=== PATIENT | female | born 1950 | race Caucasian/White ===

== ENCOUNTER → 2016-11-24 | Outpatient (CLI) | payer OTHER ==
--- NOTE | 2016-11-25 10:46 | MM ---
Reason for exam: screening (asymptomatic). Last mammogram was performed 1 year ago. History: Patient is postmenopausal. Family history of breast cancer in aunt. Took hormonal contraceptives for 2 years. Physical Findings: A clinical breast exam by your physician is recommended on an annual basis and results should be correlated with mammographic findings. MG Screening Mammo w CAD Bilateral CC and MLO view(s) were taken. Prior study comparison: November 16, 2015, bilateral MG screening mammo w CAD. November 14, 2014, bilateral MG screening mammo w CAD. No significant changes when compared with prior studies. ASSESSMENT: Benign, BI-RAD 2 RECOMMENDATION: Routine screening mammogram of both breasts in 1 year.
== END | disposition home or self-care (01) ==
LOC: RADMAMWWP 13:29
PROVIDERS: ATTEND Family Medicine
DX: Z12.31 Encounter for screening mammogram for malignant neoplasm of breast (principal)

== ENCOUNTER → 2017-05-04 | Outpatient (CLI) | payer MEDICARE ==
--- NOTE | 2017-05-04 20:32 | CONS ---
CONSULTATION DATE OF SERVICE: 05/04/17 HISTORY OF PRESENT ILLNESS/SLEEP WAKE EVALUATION: 67-year-old lady has been re-evaluated in [facility] for obstructive sleep apnea- hypopnea syndrome. I have known the patient since 2012. At that time, she was diagnosed with extremely severe obstructive sleep apnea-hypopnea syndrome with apnea-hypopnea index 86 and she was started on treatment with CPAP with a pressure of 10 cm of water. Patient continued to use her CPAP equipment until now. For this year she has significantly changed her weight up and down totally according to her she lost around 40 pounds of weight. For the last year she developed problems with awakenings from sleep, which she did not have for the previous year since she was started on treatment with CPAP. SLEEP SCHEDULE: The patient's usual sleep schedule at midnight until 8:30 a.m. FALLING ASLEEP: Sometimes she has problem with falling asleep. She has taken Tylenol p.m. to help with falling asleep. She has TV set in bedroom. DURING SLEEP: She wakes up from sleep up to 4 times with small episodes of nocturia. DURING THE DAY/SLEEP WAKE EVALUATION: No history of hypnagogic hallucinations, sleep paralysis or cataplexy. [place] Sleepiness Scale is 5. PAST MEDICAL HISTORY: Positive for some difficulties to concentrate, possible depression, allergic sinusitis, polyps in the colon. PAST SURGICAL HISTORY: None. MEDICATIONS: Vitamins, Tylenol, citalopram. History of ear infection, status post tube insertion, about 3 years ago for fluids in her ears. She developed loss of hearing with some changes of hearing while she had this infection, improved after she was treated. REVIEW OF SYMPTOMS: Multiple awakenings from sleep even while using her CPAP. FAMILY HISTORY: Colon cancer. PLAN: 1. CPAP titration for evaluation of effective CPAP pressure at the present time after patient lost according to her about 40 pounds. 2. Continue losing weight. 3. Continue using CPAP therapy. 4. No driving if feeling sleepiness. 5. Prescription for all necessary supplies. Thank you very much for allowing me to participate in the management of your patient. Sincerely, Ryan Doherty MD, PhD, FAASM Diplomat of [employer] Education Manager of [facility] [place] MMODL / IJN: [id number] /
== END ==
LOC: SLEEP 13:50
PROVIDERS: ATTEND Internal Medicine
DX: G47.33 Obstructive sleep apnea (adult) (pediatric) (principal); Z99.89 Dependence on other enabling machines and devices; Z79.899 Other long term (current) drug therapy
CPT/HCPCS: 99211

== ENCOUNTER → 2017-08-24 | Outpatient (CLI) | payer MEDICARE ==
--- NOTE | 2017-08-24 16:24 | PN ---
PROGRESS NOTE DATE OF SERVICE: 08/24/2017 This patient is a 67-year-old lady who has been followed in the sleep center for treatment of obstructive sleep apnea-hypopnea syndrome. Recently she had a CPAP titration after she lost about 40 pounds and received her new CPAP unit. She is able to use CPAP equipment without problems, but she feels that the pressure is not enough to correct her breathing problems during sleep. I checked her CPAP unit. CPAP pressure is 8 cm of water. Leak is 16 L/minute, which is borderline. Apnea-hypopnea index for the last month is 5.44; for last night 2.7. Usage is 16 nights for the last month because the patient was on vacation. [place] Sleepiness Scale is 6. MEDICATIONS: 1. Baby aspirin. 2. Calcium supplement. 3. B12. 4. Citalopram. PHYSICAL EXAMINATION: GENERAL A pleasant lady in no distress. VITAL SIGNS: BP 119/66, HR 66, RR 18, weight 211.8, temperature 97.7, oxygen saturation at room air 95%. HEENT: PERRLA, EOMI. Evaluation of oropharynx showed tongue protrudes midline; moderately low position of soft palate. NECK: Supple. No JVD. Thyroid is not palpable. LUNGS: Clear to percussion and to auscultation. Good air exchange. No wheezing or rhonchi. HEART: S1, S2 regular. No murmurs, gallops or rubs. ABDOMEN: Slightly obese. EXTREMITIES : No clubbing or cyanosis. CRABBING MACHINE OPERATOR: Awake, alert, and oriented X3. Cranial nerves 2 to 7 intact. There is no fasciculation or atrophy. noted. No focal deficits observed. IMPRESSION: 1. Obstructive sleep apnea-hypopnea syndrome. Patient is benefitting from CPAP treatment. 2. Mild obesity; body mass index 36. 3. History of allergic sinusitis. 4. History of polyps in the colon. PLAN: 1. I will increase pressure in CPAP unit to 10 cm of water. 2. Patient will continue to use CPAP equipment every night for the whole night. 3. Losing weight program. 4. Sleep hygiene with regular time in bed for at least 8 hours. 5. No driving if feeling any sleepiness. Thank you very much for allowing me to participate in the management of your patient. Sincerely, Ryan Doherty MD, PhD, FAASM Diplomat of [employer] Manager [employer] of [facility] MMDMITRY / VIKAN: [id number] /
== END | disposition home or self-care (01) ==
LOC: SLEEP 13:10
PROVIDERS: ATTEND Internal Medicine
DX: G47.33 Obstructive sleep apnea (adult) (pediatric) (principal); E66.9 Obesity, unspecified; Z99.89 Dependence on other enabling machines and devices; Z79.82 Long term (current) use of aspirin; Z79.899 Other long term (current) drug therapy; Z68.36 Body mass index [BMI] 36.0-36.9, adult; Z86.010 Personal history of colon polyps; Z87.09 Personal history of other diseases of the respiratory system

== ENCOUNTER → 2017-12-28 | Outpatient (CLI) | payer MEDICARE ==
--- NOTE | 2018-01-01 08:27 | MM ---
Reason for exam: screening (asymptomatic). Last mammogram was performed 1 year and 1 month ago. History: Patient is postmenopausal. Family history of breast cancer in aunt. Took hormonal contraceptives for 2 years. Physical Findings: A clinical breast exam by your physician is recommended on an annual basis and results should be correlated with mammographic findings. MG Screening Mammo w CAD Bilateral CC and MLO view(s) were taken. Prior study comparison: November 24, 2016, bilateral MG screening mammo w CAD. November 16, 2015, bilateral MG screening mammo w CAD. The breast tissue is heterogeneously dense. This may lower the sensitivity of mammography. No suspicious abnormality. No significant changes when compared with prior studies. ASSESSMENT: Negative, BI-RAD 1 RECOMMENDATION: Routine screening mammogram of both breasts in 1 year.
== END ==
LOC: RADMAMWWP 11:21
PROVIDERS: ATTEND Family Medicine
DX: Z12.31 Encounter for screening mammogram for malignant neoplasm of breast (principal)
CPT/HCPCS: 77067

== ENCOUNTER → 2020-03-20 | Outpatient (CLI) | payer MEDICARE ==
--- NOTE | 2020-03-24 09:19 | MM ---
Reason for exam: screening (asymptomatic). Last mammogram was performed 2 years and 3 months ago. History: Patient is postmenopausal. Family history of breast cancer in aunt. Took hormonal contraceptives for 2 years. Physical Findings: A clinical breast exam by your physician is recommended on an annual basis and results should be correlated with mammographic findings. MG Screening Mammo w CAD Bilateral CC and MLO view(s) were taken. Prior study comparison: December 28, 2017, bilateral MG screening mammo w CAD. November 24, 2016, bilateral MG screening mammo w CAD. There are scattered fibroglandular densities. There is chronic nodularity in the left upper outer quadrant. No significant changes when compared with prior studies. ASSESSMENT: Negative, BI-RAD 1 RECOMMENDATION: Routine screening mammogram of both breasts in 1 year.
== END | disposition home or self-care (01) ==
LOC: RADMAMWWP 15:04
PROVIDERS: ATTEND Family Medicine
DX: Z12.31 Encounter for screening mammogram for malignant neoplasm of breast (principal)
CPT/HCPCS: 77067

== ENCOUNTER → 2020-08-25 | Outpatient (CLI) | payer MEDICARE | END | disposition home or self-care (01) | LOC: LABPAT 14:11 | PROVIDERS: ATTEND Orthopaedic Surgery | DX: Z01.812 Encounter for preprocedural laboratory examination (principal); M16.11 Unilateral primary osteoarthritis, right hip | CPT/HCPCS: 36415; 86850; 86900; 86901; 87070 ==

== ENCOUNTER 2020-09-01 06:50 | Day surgery (SDC) | payer MEDICARE ==
[2020-08-27 10:09] VITALS: BMI 37.4
--- NOTE | 2020-08-31 18:17 | HP ---
HISTORY AND PHYSICAL CHIEF COMPLAINT: Right hip pain. HISTORY OF PRESENT ILLNESS: Patient is a 70-year-old retired female who presents with progressive right hip pain for the past several years, worsening in the past 5 months. She is having pain with weightbearing activities in the groin and her side. She also having night symptoms. She is using a cane and has been limping. She has tried medications in addition to caretaker without much relief. She denies any numbness. PAST MEDICAL HISTORY: Significant for infection. PAST SURGICAL HISTORY: Significant for surgical colonoscopy, tubal ligation and previous ear surgery. CURRENT MEDICATIONS: Ibuprofen and Lexapro. She denies drug allergies. FAMILY HISTORY: Significant for cancer. SOCIAL HISTORY: Negative for current tobacco or alcohol use. REVIEW OF SYSTEMS: Sixteen-point review of systems otherwise reviewed and is noncontributory. PHYSICAL EXAMINATION: On examination, the patient is approximately 5 foot 5, 220 pounds of endomorphic habitus. HEENT exam is nonfocal. Neck is supple. Passive motion right hip, flexion 70 degrees, external rotation of the hip flexed 50 degrees, internal rotation 0 degrees with pain. Clinically, she has shortening of right lower extremity compared to the left. Her distal neurovascular exam appears intact in the right lower extremity. AP of the pelvis obtained in the office show severe right hip osteoarthrosis with bone- on-bone changes and subchondral sclerosis. IMPRESSION: Right hip severe osteoarthrosis. RECOMMENDATIONS: I talked to the patient at length regarding her condition along with treatment options. At this point, she is quite symptomatic and limited because of pain related to her osteoarthrosis despite conservative measures. After thorough discussion, she opts to proceed with surgery. We will plan to proceed with right total hip arthroplasty utilizing lateral approach. Risks and benefits were discussed at length in layman's terms. We will institute DVT prophylaxis postoperatively. The patient underwent preoperative medical evaluation by Dr. Perez. MMODL / IJN: [id number] /
[~2020-09-01 06:50] MED LIST: ACETAMINOPHEN TAB 500 MG TAB PO PRN; MELOXICAM 7.5 MG TAB PO PRN; TRANEXAMIC ACID 1,000 MG in SODIUM CHLORIDE 0.9% 100 ML IVPB PRN
[2020-09-01] MEDS ORDERED: TRANEXAMIC ACID 1,000 MG/10 ML VIAL ONE (07:18)
[2020-09-01] MEDS ORDERED: PROPOFOL 10 MG/ML 20 ML VIAL IV ONE (07:18)
[2020-09-01] MEDS ORDERED: SODIUM CHLORIDE 0.9% 100 ML BAG ONE (07:18)
[2020-09-01] MEDS ORDERED: HYDROmorphone (PF) 1 MG/ML ONE (07:18)
[2020-09-01] MEDS ORDERED: fentaNYL (PF) 50 MCG/ML 2 ML AMP ONE (07:18)
[2020-09-01] MEDS ORDERED: MIDAZOLAM 2 MG/2 ML VIAL ONE (07:18)
[2020-09-01] MEDS ORDERED: ePHEDrine SULFATE/0.9% NACL/PF 50 MG/5 ML SYRINGE IV ONE (07:18)
[2020-09-01] MEDS ORDERED: LIDOCAINE 1% (10MG/ML) FOR IV START SQ ONE (07:20)
[2020-09-01] MEDS ORDERED: ONDANSETRON 4 MG/2 ML VIAL ONE (07:28)
[2020-09-01] MEDS ORDERED: LACTATED RINGERS 1,000 ML IV ONE ×2 (07:32→08:35)
[2020-09-01] MEDS ORDERED: DEXAMETHASONE SOD PHOSPHATE 4 MG/ML 1 ML VIAL IV ONE (07:33)
[2020-09-01] MEDS ORDERED: ceFAZolin 1,000 MG in SODIUM CHLORIDE 0.9% 1,000 ML IRRIGATION ONE (08:25)
[2020-09-01] MEDS ORDERED: ONDANSETRON 4 MG/2 ML VIAL IVP PRN (09:39)
[2020-09-01] MEDS ORDERED: NALOXONE 0.4 MG/ML 1 ML VIAL IV PRN (09:39)
[2020-09-01] MEDS ORDERED: ACETAMINOPHEN TAB 325 MG TAB PO PRN (09:39)
[2020-09-01] MEDS ORDERED: HYDROmorphone 0.5 MG/0.5 ML SYRINGE IVP PRN (09:39)
[2020-09-01] MEDS ORDERED: MAGNESIUM HYDROXIDE 2,400 MG/10 ML CUP PO PRN (09:39)
--- NOTE | 2020-09-01 09:59 | P.OP ---
Date of Procedure: 09/01/20 Preoperative Diagnosis: Right hip severe osteoarthrosis Postoperative Diagnosis: Same Procedure(s) Performed: Right total hip arthroplastypress-fitlateral approach Implants: Depuy Corail size 10 standard collared press-fit femoral stem, 36+1.5 cobalt chrome femoral head, 52 mm [place] acetabular shell with neutral polyethylene liner. Anesthesia: GETA, spinal Surgeon: Bryson Griffith General Office Assistant #1: Garry Lira Assistant #2: Kamran Colindres Estimated Blood Loss (ml): 250 Pathology: other (Femoral head) Condition: stable Disposition: PACU Indications for Procedure: The patient's a 70-year-old female who presents with progressive right hip pain secondary to osteoarthrosis despite conservative measures. A discussion of the risks and benefits of operative intervention versus continued conservative measures was made with patient. She opted to proceed with surgery. Operative risks to include infection, neurovascular injury, development of blood clots, possible fracture, possible leg length discrepancy, possible instability, possible failure components and need for subsequent procedures was discussed. Informed consent was obtained. Operative Findings: As below Description of Procedure: The patient was brought to the operating room, and after induction of spinal anesthesia was placed in a lateral decubitus position. The bony prominences were appropriately padded. The pelvis was stable perpendicular to the floor with a pegboard. The right lower extremity was prepped and draped in normal fashion. A spinal anesthetic was deemed to be inadequate and therefore general endotracheal intubation was performed by anesthesia. A 12 cm incision was then made centered over the greater trochanter extending superiorly to level the ASIS and distally in line with the femoral shaft. The skin and subcutaneous tissues were divided sharply. Electrocautery was used for hemostasis. The fascia ortega and gluteus jacqueline fascia was split in line with the skin incision. The muscle fibers were bluntly dissected proximally. A self-retaining retractor was placed. The anterior and posterior margins of the gluteus medius muscles identi fied and the anterior two thirds was detached from the greater trochanter with electrocautery. The gluteus minimus tendon was identified and detached in a similar fashion. A wide capsulotomy was performed. The femoral neck fracture was identified in the lower neck cut was made approximately 1 1/2 cm above the level of the lesser trochanter with a sagittal saw at a 45 the shaft. The head was then extracted with a corkscrew. Attention was then paid towards preparing the acetabular. Anterior and posterior retractors were placed. The remaining capsular labral tissues debrided sharply clearly defining the acetabular margins. Began reaming with a 45 mm reamer taking care to initially medialize, then reaming at 45 of abduction and 20 of anteversion. Sequential reaming is performed up to 51 mm. This was down to bleeding bony surface. A trial 52 mm acetabular shell was inserted at 45 of abduction and 20 of anteversion. This was fully seated. There was good rim fit and stability. The final implant was impacted and the same orientation and was fully seated. There was good stability. A neutral polyethylene liner was then impacted. Care taken to avoid any soft tissue interposition. Attention was then paid towards preparing the proximal femur. A box chisel was used to open the metaphyseal region. A canal finder was used to find the femoral canal. Sequential broaching was performed up to a size 10. This is placed in 15 of anteversion with the leg perpendicular floor judging off the trans-epicondylar axis. There is good rotational stability. A calcar mill was used to fashion the medial calcar. A trial standard neck along with a 36 mm + 1.5 trial head was placed. The hip was gently reduced. It was taken through range of motion. I felt to be stable in f lexion and extension with internal and external rotation. I felt there was adequate jehovah's witness of soft tissue tension. The hip was gently dislocated. The trial components removed. Pulsatile lavage was utilized. The final size 10 standard collared femoral stem was inserted again with the leg perpendicular to the floor in 15 of anteversion. Again there was good rotational stability. A 36 mm + 1.5 cobalt chrome femoral head was gently impacted. The hip was gently reduced. Again it was taken through motion and felt to be stable in flexion and extension with internal and external rotation. Pulsatile lavage was again utilized. With the leg in abduction the gluteus minimus and medius tendons reattached to the greater trochanter with #2 Ethibond suture. There was minimal drainage therefore a deep drain was not placed. The fascia ortega and gluteus jacqueline fascia was closed with #2 Ethibond suture. The subcutaneous tissues were reapproximated interrupted 2-0 Vicryl sutures. The skin was reapproximated with 3-0 subcuticular strata fix suture. Skin tape and adhesive was applied. A sterile dressing was applied. The patient was awoken from sedation and transferred to recovery room in good condition. Blood loss was estimated 250 mL. No complications were incurred. Sponge and needle counts were correct in the case. Gera PADILLA assisted during the major composes case to include exposure, implantation, and closure.
[2020-09-01] MEDS ORDERED: HYDROmorphone 0.5 MG/0.5 ML SYRINGE IVP ONE (10:14)
--- NOTE | 2020-09-01 10:17 | XR ---
EXAMINATION TYPE: XR Hip Limited RT DATE OF EXAM: 09/01/2020 CLINICAL HISTORY: Right hip pain and osteoarthritis. TECHNIQUE: Single AP portable view of right hip is obtained immediately postoperatively. COMPARISON: Outside Pelvic x-ray July 10, 2020. FINDINGS: Metallic hardware from right hip arthroplasty is seen and appears satisfactory in alignment and position. There is evidence of recent surgery with subcutaneous gas noted laterally. IMPRESSION: Metallic hardware from right hip arthroplasty is satisfactory in position.
[2020-09-01] MEDS ORDERED: PSYLLIUM HUSK 100% 6 GM PACKET PO SCH ×2 (12:30→21:00)
[2020-09-01] MEDS: HYDROcodone/APAP 7.5-325MG 1 EACH TAB PO PRN ×2 (15:04→22:16)
--- NOTE | 2020-09-01 17:15 | P.CONS ---
History of Present Illness - Reason for Consult Consult date: 09/01/20 Medical management Requesting physician: Bryson Griffith - Chief Complaint Hip pain - History of Present Illness Consultation: This is a very pleasant 70-year-old patient of Dr. Palafox. Agent has undergone right total hip arthroplasty. Slight postprocedure discomfort. No nausea vomiting. No chest pain or shortness of breath. Laying in bed. Patient does have obstructive sleep apnea and uses a CPAP. Has arthritic pain in other joints. Occasional reflux symptoms. Patient has trouble sleeping. And takes a Tylenol PM. Patient does have urinary stress incontinence with coughing sneezing etc. Review of systems: GEN.: None EYES: None HEENT: None NECK: None RESPIRATORY: None CARDIOVASCULAR: None GASTROINTESTINAL: Occasionally reflux GENITOURINARY: Urine leakage with coughing sneezing etc. MUSCULOSKELETAL: Pain in joints LYMPHATICS: None HEMATOLOGICAL: None PSYCHIATRY: None NEUROLOGICAL: Trouble sleeping Past medical history to include: Osteoarthritis, obstructive sleep apnea Social history: . Does not smoke or drink alcohol. Family history: Cancer Physical examination: VITAL SIGNS: 97.5, 72, 16, 1 44 x 70, 95% on 2 L GENERAL: BMI 37, laying in bed, comfortable. EYES: Pupils equal. Conjunctiva normal. HEENT: External appearance of nose and ears normal, oral cavity grossly normal. NECK: JVD not raised; masses not palpable. HEART: First and second heart sounds are normal; no edema. LUNGS: Respiratory rate normal; clear to auscultation. ABDOMEN: Soft, nontender, liver spleen not palpable, no masses palpable. PSYCH: Alert and oriented x3; mood and affect normal. MUSCULAR skeletal: Evidence of OA. Dressing over the right hip NEUROLOGICAL: Cranial nerves grossly intact; no facial asymmetry, power and sensation grossly intact. LYMPHATICS: No lymph nodes palpable in the axilla and neck Assessment and plan: -Right total hip arthroplasty xarelto for DVT prophylaxis -Obesity BMI 37 Weight loss measures and follow-up with PCP -Chronic constipation Add Metamucil -Intermittent GERD Use Maalox when necessary -Urinary stress incontinence -Chronic idiopathic insomnia Told the patient to discontinue Tylenol PM. Start melatonin 1 mg daily at bedtime Care was discussed the patient. Questions answered. Thank you Dr. Griffith Past Medical History Past Medical History: Osteoarthritis (OA), Sleep Apnea/CPAP/BIPAP Additional Past Medical History / Comment(s): USES CPAP-INSTRUCTED TO BRING DAY OF PROCEDURE History of Any Multi-Drug Resistant Organisms: None Reported Additional Past Surgical History / Comment(s): COLONOSCOPY Past Anesthesia/Blood Transfusion Reactions: No Reported Reaction Smoking Status: Never smoker - Past Family History Father Family Medical History: Cancer Mother Family Medical History: Cancer Medications and Allergies Home Medications Medication Instructions Recorded Confirmed Type Ascorbic Acid [Vitamin C] 1,000 mg PO HS 08/27/20 09/01/20 History Calcium Carbonate [Calcium] 1,200 mg PO HS 08/27/20 09/01/20 History Cholecalciferol [Vitamin D3 (25 25 mcg PO HS 08/27/20 09/01/20 History Mcg = 1000 Iu)] Escitalopram [Lexapro] 10 mg PO HS 08/27/20 09/01/20 History Glucos Sul 2Kcl/MSM/Chond/C/Mn 2 each PO HS 08/27/20 09/01/20 History [Glucosamine Chondroitin Cap] HYDROcodone/APAP 7.5-325MG [[place] 1 tab PO Q6HR PRN 08/27/20 09/01/20 History 7.5-325] Multivitamins, Thera [Multivitamin 1 tab PO HS 08/27/20 08/27/20 History (formulary)] Acetaminophen [Tylenol Arthritis] 1 tablet PO QID 09/01/20 09/01/20 History Melatonin 1 mg PO HS #30 tablet 09/01/20 Rx Allergies Allergy/AdvReac Type Severity Reaction Status Date / Time No Known Allergies Allergy Verified 09/01/20 07:06 Physical Exam Vitals: Vital Signs Temp Pulse Pulse Resp BP Pulse Ox 09/01/20 10:32 71 16 129/58 94 L 09/01/20 10:17 63 16 132/63 99 09/01/20 10:02 70 16 133/59 100 09/01/20 09:47 96.9 F L 71 18 137/64 93 L 09/01/20 07:10 96.9 F L 64 16 134/61 95 Intake and Output 08/31/20 09/01/20 09/01/20 22:59 06:59 14:59 Intake Total 1851 Output Total 250 Balance 1601 Intake: IV 1851 Output: Estimated Blood Loss 250 Other: Weight 100.9 kg
[2020-09-01] MEDS ORDERED: ASCORBIC ACID 500 MG TAB PO SCH (21:00)
[2020-09-01] MEDS ORDERED: MULTIVITAMINS, THERA 1 EACH TAB PO SCH (21:00)
[2020-09-01] MEDS ORDERED: MELATONIN 1 MG TAB PO SCH (21:00)
[2020-09-01] MEDS ORDERED: CALCIUM CARBONATE 500 MG CHEWABLE PO SCH (21:00)
[2020-09-01] MEDS ORDERED: ESCITALOPRAM 10 MG TAB PO SCH (21:00)
[2020-09-01] MEDS ORDERED: CHOLECALCIFEROL 25 MCG (1000 IU) TABLET PO SCH (21:00)
[2020-09-01] MEDS ORDERED: SENNOSIDES-DOCUSATE SODIUM 1 EACH TAB PO SCH (21:00)
[2020-09-02 07:37] VITALS: BP 138/74; PULSE 80; RESP 17; TEMP 98.3
[2020-09-02] MEDS: HYDROcodone/APAP 7.5-325MG 1 EACH TAB PO PRN ×2 (07:50→14:41)
[2020-09-02 08:24] LABS: Basophils % (A) 0 %; Eosinophils % (A) 0 %; HCT 36.9 % (34.0-46.0); HGB 12.3 gm/dL (11.4-16.0); Lymphocytes # (A) 1.6 k/uL (1.0-4.8); Lymphocytes % (A) 14 %; MCH 31.2 pg (25.0-35.0); MCHC 33.3 g/dL (31.0-37.0); MCV 93.5 fL (80.0-100.0); Mean Platelet Volume 8.2; Monocytes # (A) 0.6 k/uL (0-1.0); Monocytes % (A) 5 %; Neutrophils # (A) 9.5 k/uL (1.3-7.7); Neutrophils % (A) 80 %; Platelet Count 236 k/uL (150-450); RBC 3.95 m/uL (3.80-5.40); WBC 11.9 k/uL (3.8-10.6)
[2020-09-02] MEDS ORDERED: FAMOTIDINE 20 MG TAB PO SCH (09:00)
[2020-09-02] MEDS ORDERED: RIVAROXABAN 10 MG TAB PO SCH (09:00)
--- NOTE | 2020-09-02 11:30 | P.DS ---
Providers Date of admission: 09/01/2020 Expected date of discharge: 09/02/20 Attending physician: Bryson Griffith Consults: 09/01/20 09:39 Consult Physician Routine Consulting Provider: Jasper Palafox Reason/Comments: medical management Do you want consulting provider notified?: Yes Primary care physician: Jasper Palafox [facility] Course: Date of admission: 09/01/2020 Date of discharge: 09/02/2020 Admission diagnosis: Right hip osteoarthritis Discharge diagnosis: Same Attending physician: Dr. Griffith Surgical procedures: Right total hip arthroplasty Brief history: Patient is a 70-year-old female with a history of progressive primary right hip osteoarthritis. At this point patient has failed conservative treatment measures and has opted to proceed with a elective right total hip arthroplasty. Hospital course: Details of patient's surgery can be found in operative report. Patient tolerated the procedure well and was subsequently transported to orthopedic floor. Patient's orthopeidc and medical care was provided daily. Patient had daily laboratory tests performed for evaluation of overall blood counts. Patient had daily physical therapy to include strengthening range of motion as well as education with walker ambulation. Patient was treated with Xarelto for their postoperative DVT prophylaxis during their inpatient stay. Patient was noted to have a relatively uneventful postoperative course. Patient reported satisfactory pain control with oral pain medications by postoperative day 1. Patient showed satisfactory progress with physical therapy. Patient moved steadily through the program and had no difficulty meeting the goals by postoperative day 1. Given patient's otherwise satisfactory course and having met physical therapy goals, plan is to discharge patient home on postoperative day 1. Discharge condition/disposition: Patient will be discharged home in stable condition. Discharge medications: Instructions are given on resumption of patient's normal daily medications per primary care recommendation, in addition patient will be prescribed [place] 7.5 mg/325 mg; senna; Eliquis 2.5 mg BID x 2 weeks. Discharge instructions: 1. Wound care and infection precautions keep incision dry and covered while showering, no lotions, creams, moisturizers. No soaking, tubs, pools, hottubs. Do not scrub over the incision. 2. Weight-foster as tolerated with walker / cane until follow-up. 3. Ice and elevate when necessary. Do not exceed 20 minutes per hour with ice pack. 4. Utilize compression sleeve until seen at first follow up appointment. 5. Visiting nursing care. 6. Home physical therapy. 7. Pain meds and anticoagulants per prescription. 8. Pain medication has potential to cause constipation. Increase oral fluid and fiber intake. Contact primary care provider if you have not had a bowel movement within 48 hours after discharge 9. No anti-inflammatory medication until discussed at first post operative visit, this including Motrin, Aleve, Mobic, Diclofenac. 10. Follow up in office at 2 weeks postop with Gera Lira PA-C / Kamran Colindres PA-C 11. Follow up with your primary care doctor 7-10 days after discharge. 12. Contact [facility] with any questions, . Assessment: Right hip osteoarthritis Procedures: Right total hip arthroplasty Patient Condition at Discharge: Good Plan - Discharge Summary Discharge Rx Participant: Yes New Discharge Prescriptions: New Melatonin 1 mg PO HS #30 tablet HYDROcodone/APAP 7.5-325MG [[place] 7.5] 1 each PO Q6HR PRN #28 tab PRN Reason: Pain Apixaban [Eliquis] 2.5 mg PO BID #60 tab Sennosides [Senna] 8.6 mg PO DAILY #20 tablet No Action Calcium Carbonate [Calcium] 1,200 mg PO HS Acetaminophen [Tylenol Arthritis] 1 tablet PO QID Multivitamins, Thera [Multivitamin (formulary)] 1 tab PO HS HYDROcodone/APAP 7.5-325MG [[place] 7.5-325] 1 tab PO Q6HR PRN PRN Reason: Pain Escitalopram [Lexapro] 10 mg PO HS Cholecalciferol [Vitamin D3 (25 Mcg = 1000 Iu)] 25 mcg PO HS Glucos Sul 2Kcl/MSM/Chond/C/Mn [Glucosamine Chondroitin Cap] 2 each PO HS Ascorbic Acid [Vitamin C] 1,000 mg PO HS Discharge Medication List Ascorbic Acid [Vitamin C] 1,000 mg PO HS 08/27/20 [History] Calcium Carbonate [Calcium] 1,200 mg PO HS 08/27/20 [History] Cholecalciferol [Vitamin D3 (25 Mcg = 1000 Iu)] 25 mcg PO HS 08/27/20 [History] Escitalopram [Lexapro] 10 mg PO HS 08/27/20 [History] Glucos Sul 2Kcl/MSM/Chond/C/Mn [Glucosamine Chondroitin Cap] 2 each PO HS 08/27/20 [History] HYDROcodone/APAP 7.5-325MG [[place] 7.5-325] 1 tab PO Q6HR PRN 08/27/20 [History] Multivitamins, Thera [Multivitamin (formulary)] 1 tab PO HS 08/27/20 [History] Acetaminophen [Tylenol Arthritis] 1 tablet PO QID 09/01/20 [History] Melatonin 1 mg PO HS #30 tablet 09/01/20 [Rx] Apixaban [Eliquis] 2.5 mg PO BID #60 tab 09/02/20 [Rx] HYDROcodone/APAP 7.5-325MG [[place] 7.5] 1 each PO Q6HR PRN #28 tab 09/02/20 [Rx] Sennosides [Senna] 8.6 mg PO DAILY #20 tablet 09/02/20 [Rx] Follow up Appointment(s)/Referral(s): [facility], [NON-STAFF] - 1-2 Days
--- NOTE | 2020-09-02 11:36 | P.PN ---
Subjective Progress Note Date: 09/02/20 Principal diagnosis: Right hip osteoarthritis Patient was seen at bedside this morning. Patient was sitting up in chair with legs elevated. Patient says she is in a moderate amount of pain this morning. She says she was able to get up yesterday and felt okay. Patient says she has been using incentive spirometer throughout the day. Patient denies having bowel movement. Patient does say she lives at home with and there are couple steps in the house. However, patient says she has been passing gas. Patient denies fever, chest pain, shortness breath, nausea, vomiting, change in vision, loss of bowel/bladder control. Objective - Vital Signs Vital signs: Vital Signs Temp 98.3 F 09/02/20 07:36 Pulse 80 09/02/20 07:36 Resp 17 09/02/20 07:36 BP 138/74 09/02/20 07:36 Pulse Ox 94 L 09/02/20 07:36 Intake & Output 09/01/20 09/02/20 09/02/20 18:59 06:59 18:59 Intake Total 2051 Output Total 250 Balance 1801 Weight 100.9 kg Intake: IV 1851 Oral 200 Output: Estimated Blood Loss 250 Other: # Voids 2 1 - Exam Right hip: Incision is clean, dry, and intact. The exofin fusion tape is in good condition. There is minimal soft tissue swelling and ecchymosis surrounding the medial and lateral aspects of the incision. Calf is soft, no tenderness with palpation. Plantar flexion, dorsiflexion, EHL, FHL are intact. Sensory exam to light touch throughout the extremity is intact, dorsal pedis pulses 2+. - Labs CBC & Chem 7: 09/02/20 07:29 Labs: Abnormal Lab Results - Last 24 Hours (Table) 09/02/20 Range/Units 07:29 WBC 11.9 H (3.8-10.6) k/uL Neutrophils # 9.5 H (1.3-7.7) k/uL Assessment and Plan Assessment: Right hip osteoarthritis Plan: 1. Right hip osteoarthritis - right total hip arthroplasty performed yesterday, 09/02/2020. Patient stable at bedside this morning 2. Pain management - stable at this time. Continue [place] 7.5 mg/325 mg 3. GI prophylaxis/DVT prophylaxis - senna and Xarelto in hospital. Going home with senna and Eliquis 2.5 mg BID x 2 weeks. 4. Encourage incentive spirometer use 5. Discharge planning - plan discharge for today 09/02/2020 to go home. Time with Patient: Less than 30
--- NOTE | 2020-09-02 20:02 | P.PN ---
Progress Note - Text Progress Note Date: 09/02/20 - Chief Complaint Hip pain Consultation: This is a very pleasant 70-year-old patient of Dr. Palafox. Agent has undergone right total hip arthroplasty. Slight postprocedure discomfort. No nausea vomiting. No chest pain or shortness of breath. Laying in bed. Patient does have obstructive sleep apnea and uses a CPAP. Has arthritic pain in other joints. Occasional reflux symptoms. Patient has trouble sleeping. And takes a Tylenol PM. Patient does have urinary stress incontinence with coughing sneezing etc. Today: Sitting up in a chair. Feeling much better. Pain at the operative site. No nausea vomiting. Did tolerated breakfast. No chest pain no shortness breath. No dizziness. Review of systems: Was done for constitutional, cardiovascular, GI, pulmonary. relevant finding as above Current medications reviewed in today's electronic records Past medical history to include: Osteoarthritis, obstructive sleep apnea Social history: . Does not smoke or drink alcohol. Family history: Cancer Physical examination: VITAL SIGNS: 98.3, 80, 17, 138.74, 94% room air GENERAL: Sitting up in a chair, comfortable EYES: Pupils equal. Conjunctiva normal. HEENT: External appearance of nose and ears normal, oral cavity grossly normal. NECK: JVD not raised; masses not palpable. HEART: First and second heart sounds are normal; no edema. LUNGS: Respiratory rate normal; clear to auscultation. ABDOMEN: Soft, nontender, liver spleen not palpable, no masses palpable. PSYCH: Alert and oriented x3; mood and affect normal. MUSCULAR skeletal: Evidence of OA. Dressing over the right hip Assessment and plan: -Right total hip arthroplasty xarelto for DVT prophylaxis -Obesity BMI 37 Weight loss measures and follow-up with PCP -Chronic constipation Add Metamucil -Intermittent GERD Use Maalox when necessary -Urinary stress incontinence -Chronic idiopathic insomnia Told the patient to discontinue Tylenol PM. Start melatonin 1 mg daily at bedtime Care was discussed the patient. Follow-up with PCP upon discharge. Thank you Dr. Griffith
== END 2020-09-02 15:51 | disposition home health service (06) ==
LOC: OR 06:50 → 4SSUR 09:24 → OR 09-02 15:51
PROVIDERS: ATTEND Orthopaedic Surgery
DX: M16.11 Unilateral primary osteoarthritis, right hip (principal); Z79.899 Other long term (current) drug therapy; G47.33 Obstructive sleep apnea (adult) (pediatric); F41.9 Anxiety disorder, unspecified
CPT/HCPCS: 97116; 97162; 86900; 86901; 85025; 86850; 88300; 73501; 36415; 27130; C1776; J2250; J1100; J0690 ×2; J2405; J3010; J1170 ×3; J2704

== ENCOUNTER → 2021-06-03 | Outpatient (CLI) | payer MEDICARE ==
--- NOTE | 2021-06-07 10:47 | MM ---
Reason for exam: screening (asymptomatic). Last mammogram was performed 1 year and 3 months ago. History: Patient is postmenopausal. Family history of breast cancer in aunt. Took hormonal contraceptives for 2 years. Physical Findings: A clinical breast exam by your physician is recommended on an annual basis and results should be correlated with mammographic findings. MG 3D Screening Mammo W/Cad Bilateral CC and MLO view(s) were taken. Prior study comparison: March 20, 2020, bilateral MG screening mammo w CAD. December 28, 2017, bilateral MG screening mammo w CAD. There are scattered fibroglandular densities. No significant changes when compared with prior studies. ASSESSMENT: Negative, BI-RAD 1 RECOMMENDATION: Routine screening mammogram of both breasts in 1 year.
== END | disposition home or self-care (01) ==
LOC: RADMAMWWP 10:55
PROVIDERS: ATTEND Family Medicine
DX: Z12.31 Encounter for screening mammogram for malignant neoplasm of breast (principal); Z78.0 Asymptomatic menopausal state; Z80.3 Family history of malignant neoplasm of breast
CPT/HCPCS: 77063; 77067

== ENCOUNTER → 2022-06-15 | Outpatient (CLI) | payer MEDICARE ==
--- NOTE | 2022-06-16 19:55 | MR ---
EXAMINATION TYPE: MR hip LT wo con DATE OF EXAM: 06/15/2022 COMPARISON: None. HISTORY: Left hip pain Standard multiplanar, multisequence MRI departmental protocol Multiplanar, multisequence images of the pelvis focusing on left hip were acquired without contrast. Diffusion weighted imaging was performed. FINDINGS: Metallic hardware from right hip arthroplasty has surrounding susceptibility artifact krista sorto evaluation slightly suboptimal. Left hip shows moderate to severe joint space loss with increased T 2 signal or edema in the superior acetabulum. There is no significant left hip joint effusion. Mild t o moderate acetabular spurring is seen. Femoral head shape is maintained. No suspicious increased T2 signal in the left femur. No left groin hernia or adenopathy. Left sided muscle bulk is maintained. S ome focal fluid near region of the greater trochanter left hip likely reflects product of a insertion al bursitis. There is moderate narrowing L4-L5 level. There is no suspicious bowel dilatation. No concerning pelvi c fluid collection. Small round low-density lesions in the retroverted uterus likely reflects intraut erine fibroids. There is 1.2 cm simple appearing thin-walled cyst in the left ovary axial image 27. IMPRESSION: 1. Moderate to borderline advanced degenerative changes in the left hip as detailed above. 2. Several small uterine fibroids are present.
== END | disposition home or self-care (01) ==
LOC: RADMRIMAIN 12:52
PROVIDERS: ATTEND Orthopaedic Surgery
DX: M25.552 Pain in left hip (principal); D25.9 Leiomyoma of uterus, unspecified

== ENCOUNTER → 2022-06-15 | Outpatient (CLI) | payer MEDICARE ==
--- NOTE | 2022-06-16 08:26 | MM ---
Reason for Exam: Screening (asymptomatic). Last screening mammogram was performed 12 month(s) ago. Patient History: Menarche at age 12. First Full-Term at age 27. Postmenopausal. Patient used Hormonal Contraceptives for 2 years. Maternal aunt had breast cancer. Risk Values: Pam 5 year model risk: 2.1%. NCI Lifetime model risk: 6.1%. Prior Study Comparison: 12/28/2017 Bilateral Screening Mammogram, [facility]. 03/20/2020 Bilateral Screening Mammogram, [facility]. 06/03/2021 Bilateral Screening Mammogram, [facility]. Tissue Density: The breast tissue is heterogeneously dense. This may lower the sensitivity of mammography. Findings: Analyzed By CAD. There is no suspicious group of microcalcifications or new suspicious mass in either breast. Overall Assessment: Negative, BI-RAD 1 Management: Screening Mammogram of both breasts in 1 year. A clinical breast exam by your physician is recommended on an annual basis and results should be correlated with mammographic findings. Electronically signed and approved by: Brian Quinn D.O.
== END | disposition home or self-care (01) ==
LOC: RADMAMWWP 13:53
PROVIDERS: ATTEND Family Medicine
DX: Z12.31 Encounter for screening mammogram for malignant neoplasm of breast (principal); Z78.0 Asymptomatic menopausal state; Z80.3 Family history of malignant neoplasm of breast
CPT/HCPCS: 77063; 77067

== ENCOUNTER → 2022-09-29 | Outpatient (CLI) | payer MEDICARE | END | disposition home or self-care (01) | LOC: LABPAT 13:12 | PROVIDERS: ATTEND Orthopaedic Surgery | DX: Z01.812 Encounter for preprocedural laboratory examination (principal); Z22.322 Carrier or suspected carrier of Methicillin resistant Staphylococcus aureus; M16.12 Unilateral primary osteoarthritis, left hip ==

== ENCOUNTER 2022-10-07 05:58 | Day surgery (SDC) | payer MEDICARE ==
[2022-09-29 10:30] VITALS: BMI 37.1
--- NOTE | 2022-10-06 08:14 | P.HPOR ---
History of Present Illness H&P Date: 10/06/22 Chief Complaint: Left hip pain The patient is a 72-year-old retired female who presents with progressive left hip pain for the past year worsening recently. She's having groin and thigh pain worse with weightbearing activities. She's tried medications without much relief. She notes the pain limits her normal function and activities. Review of Systems Negative except as in HPI Past Medical History Past Medical History: Osteoarthritis (OA), Sleep Apnea/CPAP/BIPAP Additional Past Medical History / Comment(s): Recent uTI treated with antibiotics. CPAP use. Constipation, aggravated by narcotics. History of Any Multi-Drug Resistant Organisms: None Reported Past Surgical History: Joint Replacement Additional Past Surgical History / Comment(s): Colonoscopy, right hip replacement. Past Anesthesia/Blood Transfusion Reactions: No Reported Reaction Past Psychological History: Anxiety Smoking Status: Never smoker Past Alcohol Use History: None Reported Past Drug Use History: None Reported - Past Family History Father Family Medical History: Cancer Mother Family Medical History: Cancer Medications and Allergies Home Medications Medication Instructions Recorded Confirmed Type Ascorbic Acid [Vitamin C] 1,000 mg PO DAILY 08/27/20 09/29/22 History Escitalopram [Lexapro] 10 mg PO HS 08/27/20 09/29/22 History Glucos Sul 2Kcl/MSM/Chond/C/Mn 2 each PO HS 08/27/20 09/29/22 History [Glucosamine Chondroitin Cap] Multivitamins, Thera [Multivitamin 1 tab PO HS 08/27/20 09/29/22 History (formulary)] Acetaminophen [Tylenol Arthritis] 650 mg PO DIRECTED PRN 09/29/22 09/29/22 History Calcium Carbonate [Calcium] 1,000 mg PO DAILY 09/29/22 09/29/22 History Omeprazole Magnesium [PriLOSEC OTC] 20 mg PO DAILY 09/29/22 09/29/22 History Vitamin B-12 (Unknown Dose) 1 tab PO DAILY 09/29/22 09/29/22 History Allergies Allergy/AdvReac Type Severity Reaction Status Date / Time No Known Allergies Allergy Verified 09/29/22 10:04 Physical Examination - Hip left Gait: antalgic Tenderness with palpation: anterior Pain with motion: internal rotation and hip flexion ROM: flexion: 80 degrees ROM: internal rotation: 10 degrees (With pain) ROM: external rotation: 60 degrees Crepitus with motion: Yes Strength: extension: 5/5 Strength: flexion: 5/5 Strength: abduction: 5/5 Tests: impingement tests: positive Results The patient is a well-developed well-nourished female, approximately 5 foot 5 220 pounds of endomorphic habitus. HEENT exam is nonfocal, neck supple. She has painful passive motion of her left hip. Straight leg raise is negative. Her distal neurovascular appears intact in the left lower extremity. - Diagnostic results Hip x-ray: image reviewed (AP and lateral views of the left hip obtained in the office show moderate to severe joint space narrowing. MRI of the left hip shows evidence of severe degenerative joint disease.) Assessment and Plan Assessment: Left hip osteoarthrosissevere Plan: I talked to the patient length regarding her condition along with treatment options. At this point she's quite limited because of pain despite previous conservative measures. After a thorough discussion she opts to proceed with surgery. We will plan to proceed with left total hip arthroplasty utilizing a lateral approach. Risks and benefits were discussed at length in layman's terms. We will institute DVT prophylaxis postoperatively.
[~2022-10-07 05:58] MED LIST changes: +TRANEXAMIC 1,000 MG/100ML-NACL 1,000 MG in SALINE 1 100ML.BAG IVPB PRN; -TRANEXAMIC ACID 1,000 MG in SODIUM CHLORIDE 0.9% 100 ML IVPB PRN
[2022-10-07] MEDS ORDERED: ONDANSETRON 4 MG/2 ML VIAL IVP ONE (06:09)
[2022-10-07] MEDS ORDERED: DEXAMETHASONE SOD PHOSPHATE 4 MG/ML 1 ML VIAL IV ONE (06:09)
[2022-10-07] MEDS ORDERED: MIDAZOLAM 2 MG/2 ML VIAL IV PRN (06:09)
[2022-10-07] MEDS: LACTATED RINGERS 1,000 ML IV SCH (06:38)
[2022-10-07] MEDS ORDERED: HYDROmorphone 0.5 MG/0.5 ML SYRINGE IVP PRN ×3 (07:00→09:48)
[2022-10-07] MEDS ORDERED: fentaNYL (PF) 50 MCG/ML 2 ML AMP IVP ONE (07:09)
--- NOTE | 2022-10-07 07:29 | P.ANPRN ---
Procedure Note - Anesthesia - Nerve Block Performed Left Fidel Single Time Out Performed: Yes Date of Procedure: 10/07/22 Procedure Start Time: 07:09 Procedure Stop Time: 07:15 Location of Patient: PreOp Indication: Acute Post-Operative Pain, Requested by Surgeon Sedation Type: Sedate with meaningful contact maintained Preparation: Sterile Prep, Sterile Dressing Position: Supine Catheter: None Needle Types: Facet Needle Gauge: 20 Ultrasound used to visualize needle placement: Yes Ultrasound used to observe medication spread: Yes Injectate: 0.5% Ropivacaine (see comment for volume) (30 ml + decadron 4 mg) Blood Aspirated: No Pain Paresthesia on Injection Noted: No Resistance on Injection: Normal Image Stored and Saved: Yes Events: Uneventful and Well Tolerated
[2022-10-07] MEDS ORDERED: ePHEDrine 50 MG/ML 1 ML VIAL ONE (07:30)
[2022-10-07] MEDS ORDERED: PHENYLEPHRINE-0.9% NACL SYG 1,000 MCG/10 ML SYRINGE ONE (07:30)
[2022-10-07] MEDS ORDERED: ROPIVACAINE 5 MG/ML 30 ML VIAL ONE (07:30)
[2022-10-07] MEDS ORDERED: diphenhydrAMINE 50 MG/ML 1 ML VIAL ONE (07:30)
[2022-10-07] MEDS ORDERED: HYDROmorphone (PF) 1 MG/ML ONE (07:30)
[2022-10-07] MEDS ORDERED: PROPOFOL 10 MG/ML 20 ML VIAL IV ONE (07:30)
[2022-10-07] MEDS ORDERED: DEXAMETHASONE SOD PHOSPHATE 4 MG/ML 1 ML VIAL ONE (07:30)
[2022-10-07] MEDS ORDERED: MIDAZOLAM 2 MG/2 ML VIAL ONE (07:30)
[2022-10-07] MEDS ORDERED: TRANEXAMIC 1,000 MG/100ML-NACL PREMIX BAG ONE (07:30)
[2022-10-07] MEDS ORDERED: ceFAZolin 1,000 MG in SODIUM CHLORIDE 0.9% 1,000 ML IRRIGATION ONE (08:10)
[2022-10-07] MEDS ORDERED: LACTATED RINGERS 1,000 ML IV ONE (08:45)
[2022-10-07] MEDS ORDERED: NALOXONE 0.4 MG/ML 1 ML VIAL IV PRN (09:48)
[2022-10-07] MEDS ORDERED: HYDROcodone/APAP 5-325MG 1 EACH TAB PO PRN (09:48)
[2022-10-07] MEDS ORDERED: MAGNESIUM HYDROXIDE 2,400 MG/30 ML CUP PO PRN (09:48)
--- NOTE | 2022-10-07 10:05 | P.OP ---
Date of Procedure: 10/07/22 Preoperative Diagnosis: Left hip severe osteoarthrosis Postoperative Diagnosis: Same Procedure(s) Performed: Left total hip arthroplastypress-fitlateral approach Implants: Depuy [place] size 9 press-fit standard collared femoral stem, 36+1.5 cobalt chrome femoral head, 52 mm [place] acetabular shell with neutral polyethylene liner. Anesthesia: spinal Surgeon: Bryson Griffith Vp Data #1: Kamran Colindres Estimated Blood Loss (ml): 250 Pathology: other (Femoral head) Condition: stable Disposition: PACU Indications for Procedure: Patient is a 72-year-old female presents with progressive left hip pain secondary to osteoarthrosis despite conservative measures. A discussion of the risks and benefits of operative intervention versus continued conservative measures was made with the patient. She opted to proceed with surgery. Operative risks to include infection, neurovascular injury, fracture, leg length discrepancy, possible component loosening/failure and need for subsequent procedures was discussed. Informed consent was obtained. Operative Findings: As below Description of Procedure: The patient was brought to the operating room, and after induction of spinal anesthesia was placed in a lateral decubitus position. The bony prominences were appropriately padded. The pelvis was stable perpendicular to the floor with a pegboard. The left lower extremity was prepped and draped in normal fashion. A 12 cm incision was then made centered over the greater trochanter extending superiorly to level the ASIS and distally in line with the femoral shaft. The skin and subcutaneous tissues were divided sharply. Electrocautery was used for hemostasis. The fascia ortega and gluteus jacqueline fascia was split in line with the skin incision. The muscle fibers were bluntly dissected proximally. A self-retaining retractor was placed. The anterior and posterior margins of the gluteus medius muscles identified and the anterior two thirds was detached from the greater trochanter with electrocautery. The gluteus minimus tendon was identified and detached in a similar fashion. A wide capsulotomy was performed. The femoral neck fracture was identified in the lower neck cut was made approximately 1 1/2 cm above the level of the lesser trochanter with a sagittal saw at a 45 the shaft. The head was then extracted with a corkscrew. Attention was then paid towards preparing the acetabulum. Anterior and posterior retractors were placed. The remaining capsular labral tissues debrided sharply clearly defining the acetabular margins. Began reaming with a 47 mm reamer taking care to initially medialize, then reaming at 45 of abduction and 20 of anteversion. Sequential reaming is performed up to 51 mm. This was down to bleeding bony surface. A trial to 2 mm acetabular shell was inserted at 45 of abduction and 20 of anteversion. This was fully seated. There was good rim fit and stability. A neutral polyethylene liner was then impacted. Care taken to avoid any soft tissue interposition. Attention was then paid towards preparing the proximal femur. A box chisel was used to open the metaphyseal region. A canal finder was used to find the femoral canal. Sequential broaching was performed up to a size 9. This is placed in 15 of anteversion with the leg perpendicular floor judging off the trans-epicondylar axis. There is good rotational stability. A calcar mill was used to fashion the medial calcar. A trial standard neck along with a 36 mm + 1.5 trial head was placed. The hip was gently reduced. It was taken through range of motion. I felt to be stable in flexion and extension with internal and external rotation. I felt there was adequate mormon of soft tissue tension. The hip was gently dislocated. The trial components removed. Pulsatile lavage was utilized. The final size 9 standard collared femoral stem was inserted again with the leg perpendicular to the floor in 15 of anteversion. Again there was good rotational stability. A 36 mm + 1.5 cobalt chrome femoral head was gently impacted. The hip was gently reduced. Again it was taken through motion and felt to be stable in flexion and extension with internal and external rotation. Pulsatile lavage was again utilized. With the leg in abduction the gluteus minimus and medius tendons reattached to the greater trochanter with #2 Ethibond suture. There was minimal drainage therefore a deep drain was not placed. The fascia ortega and gluteus jacqueline fascia was closed with #2 Ethibond suture. The subcutaneous tissues were reapproximated interrupted 2-0 Vicryl sutures. The skin was reapproximated with 3-0 subcuticular strata fix suture. Skin tape and adhesive was applied. A sterile dressing was applied. The patient was awoken from sedation and transferred to recovery room in good condition. Blood loss was estimated 250 mL. No complications were incurred. Sponge and needle counts were correct in the case. Kamran PADILLA assisted during the major composes case to include exposure, implantation, and closure.
--- NOTE | 2022-10-07 10:41 | XR ---
EXAMINATION TYPE: XR Hip Limited LT DATE OF EXAM: 10/07/2022 CLINICAL HISTORY: Postoperative evaluation TECHNIQUE: Single portable view of the left hip was submitted. FINDINGS: Noted are changes of total hip arthroplasty with femoral and acetabular components appearin g well seated. Alignment is anatomic. Postsurgical soft tissue changes are evident. IMPRESSION: Satisfactory postoperative alignment
[2022-10-07] MEDS: HYDROcodone/APAP 7.5-325MG 1 EACH TAB PO PRN ×2 (14:10→22:18)
[2022-10-07] MEDS ORDERED: ESCITALOPRAM 10 MG TAB PO SCH (21:00)
[2022-10-07] MEDS ORDERED: SENNOSIDES-DOCUSATE SODIUM 1 EACH TAB PO SCH (21:00)
[2022-10-07] MEDS ORDERED: MULTIVITAMINS, THERA 1 EACH TAB PO SCH (21:00)
--- NOTE | 2022-10-07 22:05 | P.CONS ---
History of Present Illness - Reason for Consult Consult date: 10/07/22 Medical management Requesting physician: Bryson Griffith - Chief Complaint Left hip surgery - History of Present Illness Pleasant 72-year-old patient follows with Dr. Palafox. Patient is undergoing left total hip arthroplasty. Postprocedure sitting up in a recliner. Pain control. No nausea vomiting. No dizziness no lightheadedness. Estimated blood loss was 250 mL. Did tolerate some diet. Patient does take Lexapro for anxiety depression, has arthritis, some reflux and urinary incontinence. Does use CPAP machine for obstructive sleep apnea. Review of systems: GEN.: None EYES: None HEENT: None NECK: None RESPIRATORY: Sleep apnea CARDIOVASCULAR: None GASTROINTESTINAL: GERD GENITOURINARY: Incontinence MUSCULOSKELETAL: Arthritis LYMPHATICS: None HEMATOLOGICAL: None PSYCHIATRY: None NEUROLOGICAL: None Past medical history to include: Urinary incontinence. GERD. Obstructive sleep apnea uses CPAP, osteoarthritis, depression and anxiety Social history: Does not smoke or drink alcohol. Physical examination: VITAL SIGNS: 97.7, 77, 19, 113 with 74, 90% room air GENERAL: BMI 38.6, sitting up in a recliner awake comfortable. EYES: Pupils equal. Conjunctiva normal. HEENT: External appearance of nose and ears normal, oral cavity grossly normal. NECK: JVD not raised; masses not palpable. HEART: First and second heart sounds are normal; no edema. LUNGS: Respiratory rate normal; clear to auscultation. ABDOMEN: Soft, nontender, liver spleen not palpable, no masses palpable. PSYCH: Alert and oriented x3; mood and affect normal. MUSCULOSKELETAL:No Clubbing/cyanosis;muscles-grossly intact. Chordee. Dressing over the left hip incision site. NEUROLOGICAL: Cranial nerves grossly intact; no facial asymmetry, power and sensation grossly intact. LYMPHATICS: No lymph nodes palpable in the axilla and neck Assessment and plan: -Left total hip arthroplasty IV cefazolin for infection prophylaxis. Xarelto for DVT prophylaxis. -Primary osteoarthritis Tylenol as needed -Chronic urinary stress incontinence -GERD Prilosec -Anxiety depression otherwise specified Lexapro -Estimated blood loss 2 50 mL. Check CBC in the morning Care was discussed with the patient. Question answered. Thank you Dr. Griffith Past Medical History Past Medical History: Osteoarthritis (OA), Sleep Apnea/CPAP/BIPAP Additional Past Medical History / Comment(s): Recent uTI treated with antibiotics. CPAP use. Constipation, aggravated by narcotics. History of Any Multi-Drug Resistant Organisms: None Reported Past Surgical History: Joint Replacement Additional Past Surgical History / Comment(s): Colonoscopy, right hip replacement., [facility] 10/07/22 Past Anesthesia/Blood Transfusion Reactions: No Reported Reaction Smoking Status: Never smoker - Past Family History Father Family Medical History: Cancer Mother Family Medical History: Cancer Medications and Allergies Home Medications Medication Instructions Recorded Confirmed Type Ascorbic Acid [Vitamin C] 1,000 mg PO DAILY 08/27/20 09/29/22 History Escitalopram [Lexapro] 10 mg PO HS 08/27/20 09/29/22 History Glucos Sul 2Kcl/MSM/Chond/C/Mn 2 each PO 08/27/20 09/29/22 History [Glucosamine Chondroitin Cap] Multivitamins, Thera [Multivitamin 1 tab PO HS 08/27/20 09/29/22 History (formulary)] Acetaminophen [Tylenol Arthritis] 650 mg PO DIRECTED PRN 09/29/22 09/29/22 History Calcium Carbonate [Calcium] 1,000 mg PO DAILY 09/29/22 09/29/22 History Omeprazole Magnesium [PriLOSEC OTC] 20 mg PO DAILY 09/29/22 09/29/22 History Vitamin B-12 (Unknown Dose) 1 tab PO DAILY 09/29/22 09/29/22 History Allergies Allergy/AdvReac Type Severity Reaction Status Date / Time No Known Allergies Allergy Verified 09/29/22 10:04 Physical Exam Vitals: Vital Signs Temp Pulse Pulse Resp BP BP Pulse Ox 10/07/22 19:02 97.7 F 77 19 113/74 90 L 10/07/22 14:07 97.3 F L 61 18 144/71 95 10/07/22 13:00 57 L 16 126/59 97 10/07/22 12:30 63 16 116/59 96 10/07/22 12:00 62 15 124/58 95 10/07/22 11:45 65 17 116/58 94 L 10/07/22 11:30 63 16 112/58 93 L 10/07/22 11:15 68 16 112/50 94 L 10/07/22 11:00 60 16 109/56 97 10/07/22 10:45 67 16 105/49 97 10/07/22 10:30 60 16 105/51 98 10/07/22 10:15 62 16 109/54 97 10/07/22 10:00 97.2 F L 77 14 112/49 97 10/07/22 07:27 58 L 16 110/55 94 L 10/07/22 06:30 98.3 F 61 18 133/61 94 L Intake and Output 10/07/22 10/07/22 10/07/22 06:59 14:59 22:59 Intake Total 300 1651 Output Total 250 Balance 300 1401 Intake: IV 300 1651 Output: Estimated Blood Loss 250 Other: # Voids 1 1 Weight 108.4 kg 108.4 kg
[2022-10-08] MEDS: HYDROcodone/APAP 7.5-325MG 1 EACH TAB PO PRN (05:56)
[2022-10-08] MEDS: LACTATED RINGERS 1,000 ML IV SCH (07:23)
[2022-10-08 07:33] VITALS: BP 166/78; PULSE 76; RESP 16; TEMP 98
--- NOTE | 2022-10-08 07:57 | P.DS ---
Providers Date of admission: 10/07/2022 Expected date of discharge: 10/08/22 Attending physician: Bryson Griffith Consults: 10/07/22 09:48 Consult Physician Routine Consulting Provider: Wei Echeverria Consult Reason/Comments: medical management s/p left total hip arthroplasty (lateral Do you want consulting provider notified?: Yes Primary care physician: [facility] Hospital Course: Date of admission: 10/07/2022 Date of discharge: 10/08/2022 Admission diagnosis: Left hip osteoarthritis Discharge diagnosis: same Attending physician: Dr. Griffith Surgical procedures: Left total hip arthroplasty Brief history: Patient is a 72-year-old female with a history of progressive primary left hip osteoarthritis. At this point patient has failed conservative treatment measures and has opted to proceed with a elective left total hip arthroplasty. Hospital course: Details of patient's surgery can be found in operative report. Patient tolerated the procedure well and was subsequently transported to orthopedic floor. Patient's orthopeidc and medical care was provided daily. Patient had daily laboratory tests performed for evaluation of overall blood counts. Patient had daily physical therapy to include strengthening range of motion as well as education with walker ambulation. Patient was treated with Xarelto for their postoperative DVT prophylaxis during their inpatient stay. Patient was noted to have a relatively uneventful postoperative course. Patient reported satisfactory pain control with oral pain medications by postoperative day 1. Patient showed satisfactory progress with physical therapy. Patient moved steadily through the program and had no difficulty meeting the goals by postoperative day 1. Given patient's otherwise satisfactory course and having met physical therapy goals, plan is to discharge patient home with health services on postoperative day 1. Discharge condition/disposition: Patient will be discharged home with health se rvices in stable condition. Discharge medications: Instructions are given on resumption of patient's normal daily medications per primary care recommendation, in addition patient will be prescribed [place]; senna; eliquis 2.5 mg BID x 2 weeks. Discharge instructions: 1. Wound care and infection precautions, keep incision dry and covered while showering, no lotions, creams, moisturizers. No soaking, tubs, pools, hottubs. Do not scrub over the incision. 2. Weight-bear as tolerated with walker / cane until follow-up. 3. Ice and elevate when necessary. Do not exceed 20 minutes per hour with ice pack. 4. Utilize compression sleeve until seen at first follow up appointment. 5. Visiting nursing care. 6. Home physical therapy. 7. Pain meds and anticoagulants per prescription. 8. Pain medication has potential to cause constipation. Increase oral fluid and fiber intake. Contact primary care provider if you have not had a bowel movement within 48 hours after discharge 9. No anti-inflammatory medication until discussed at first post operative visit, this including Motrin, Aleve, Mobic, Diclofenac. 10. Follow up in office at 2 weeks postop with Gera Lira PA-C / Kamran Colindres PA-C 11. Follow up with your primary care doctor 7-10 days after discharge. 12. Contact [facility] with any questions, . Assessment: Left hip osteoarthritis Procedures: Left total hip arthroplasty Patient Condition at Discharge: Good Plan - Discharge Summary Discharge Rx Participant: Yes New Discharge Prescriptions: New Sennosides/Docusate Sodium [Senna Plus 8.6-50 mg Softgel] 1 each PO DAILY #20 capsule Apixaban [Eliquis] 2.5 mg PO BID #60 tab HYDROcodone/APAP 7.5-325MG [[place] 7.5] 1 - 2 each PO Q6HR PRN #36 tab PRN Reason: Pain No Action Multivitamins, Thera [Multivitamin (formulary)] 1 tab PO HS Escitalopram [Lexapro] 10 mg PO HS Glucos Sul 2Kcl/MSM/Chond/C/Mn [Glucosamine Chondroitin Cap] 2 each PO HS Ascorbic Acid [Vitamin C] 1,000 mg PO DAILY Omeprazole Magnesium [PriLOSEC OTC] 20 mg PO DAILY Calcium Carbonate [Calcium] 1,000 mg PO DAILY Acetaminophen [Tylenol Arthritis] 650 mg PO DIRECTED PRN PRN Reason: Pain Vitamin B-12 (Unknown Dose) 1 tab PO DAILY Discharge Medication List Ascorbic Acid [Vitamin C] 1,000 mg PO DAILY 08/27/20 [History] Escitalopram [Lexapro] 10 mg PO HS 08/27/20 [History] Glucos Sul 2Kcl/MSM/Chond/C/Mn [Glucosamine Chondroitin Cap] 2 each PO HS 08/27/20 [History] Multivitamins, Thera [Multivitamin (formulary)] 1 tab PO HS 08/27/20 [History] Acetaminophen [Tylenol Arthritis] 650 mg PO DIRECTED PRN 09/29/22 [History] Calcium Carbonate [Calcium] 1,000 mg PO DAILY 09/29/22 [History] Omeprazole Magnesium [PriLOSEC OTC] 20 mg PO DAILY 09/29/22 [History] Vitamin B-12 (Unknown Dose) 1 tab PO DAILY 09/29/22 [History] Apixaban [Eliquis] 2.5 mg PO BID #60 tab 10/08/22 [Rx] HYDROcodone/APAP 7.5-325MG [[place] 7.5] 1 - 2 each PO Q6HR PRN #36 tab 10/08/22 [Rx] Sennosides/Docusate Sodium [Senna Plus 8.6-50 mg Softgel] 1 each PO DAILY #20 capsule 10/08/22 [Rx] Follow up Appointment(s)/Referral(s): Kamran Colindres PAC [PHYSIC[employer]] - 2 Weeks [facility], [NON-STAFF] - 1-2 Days ([facility] will call you to schedule your in home nursing and physical therapy visits.) Patient Instructions/Handouts: Total Hip Replacement (DC) Activity/Diet/Wound Care/Special Instructions: Orthopedic Discharge Instructions: 1. Wound care and infection precautions, keep incision dry and covered while showering, no lotions, creams, moisturizers. No soaking, pools, hot tubs. Do not scrub over incision. 2. Weight-bear as tolerated with walker / cane until follow-up. 3. Ice and elevate when necessary. Do not exceed 20 minutes per hour with ice pack. 4. Utilize compression sleeve until seen at first follow up appointment. 5. Pain meds and anticoagulants per prescription. 6. Pain medication has potential to cause constipation. Increase oral fluid and fiber intake. Contact primary care provider if you have not had a bowel movement within 48 hours after discharge. 7. No anti-inflammatory medication until discussed at first post operative visit, this including Motrin, Aleve, Mobic, Diclofenac. 8. Follow up in office at 2 weeks postop with Gera Lira PA-C / Kamran Colindres PA-C 9. Follow up with your primary care doctor 7-10 days after discharge. 10. Contact [facility] with any questions, . Keep incision clean, dry, intact. While showering, cover fusion tape with [place]. Keep fusion tape on until follow-up appointment in office in 2 weeks Discharge Disposition: HOME WITH HOME HEALTH SERVICES
[2022-10-08 08:01] LABS: Basophils % (A) 0 %; Eosinophils % (A) 0 %; HCT 33.2 % (34.0-46.0); Lymphocytes # (A) 1.4 k/uL (1.0-4.8); Lymphocytes % (A) 12 %; MCH 31.1 pg (25.0-35.0); MCHC 33.2 g/dL (31.0-37.0); MCV 93.6 fL (80.0-100.0); Mean Platelet Volume 8.8; Monocytes # (A) 0.6 k/uL (0-1.0); Monocytes % (A) 5 %; Neutrophils # (A) 9.6 k/uL (1.3-7.7); Neutrophils % (A) 81 %; Platelet Count 188 k/uL (150-450); RBC 3.55 m/uL (3.80-5.40); RDW 12.7 % (11.5-15.5); WBC 11.8 k/uL (3.8-10.6)
--- NOTE | 2022-10-08 08:08 | P.PN ---
Subjective Progress Note Date: 10/08/22 Principal diagnosis: Left hip osteoarthritis Patient was seen at bedside this morning. Patient says she is looking forward to going home later today. Patient says she does have a walker at home. Patient says she is looking forward to working with physical therapy later this morning. Patient says her pain is well-controlled pain medication. Patient says she has urinated several times since surgery and has been walking around the room. Patient says she has not had a bowel movement, however, patient says she has been passing gas. Patient denies chest pain, fever, shortness breath, nausea, change in vision, loss of bowel/bladder control. Objective - Vital Signs Vital signs: Vital Signs Temp 98.0 F 10/08/22 07:33 Pulse 76 10/08/22 07:33 Resp 16 10/08/22 07:33 BP 166/78 10/08/22 07:33 Pulse Ox 95 10/08/22 07:33 FiO2 Intake & Output 10/07/22 10/08/22 10/08/22 18:59 06:59 18:59 Intake Total 1651 Output Total 250 3 Balance 1401 -3 Weight 108.4 kg Intake: IV 1651 Output: Urine 3 Estimated Blood Loss 250 Other: # Voids 1 - Exam Left hip: Incision is clean, dry, and intact. The exofin fusion tape is in good condition. There is minimal soft tissue swelling and ecchymosis surrounding the medial and lateral aspects of the incision. Calf is soft, no tenderness with palpation. Plantar flexion, dorsiflexion, EHL, FHL are intact. Sensory exam to light touch throughout the extremity is intact, dorsal pedis pulses 2+. - Labs CBC & Chem 7: 10/08/22 06:46 Assessment and Plan Assessment: Left hip osteoarthritis - Postoperative day #1 status post left total hip arthroplasty Plan: 1. Left hip osteoarthritis - left total hip arthroplasty performed yesterday. Patient stable at bedside this morning. Patient does have a walker for home. Pending evaluation with physical therapy, discharge home today with health services. 2. Appreciate medical management 3. Pain management - [place] 4. GI prophylaxis - senna 5. DVT prophylaxis - Xarelto in hospital. Going home with eliquis 6. PT/OT - weightbearing as tolerated with walker 7. Encourage incentive spirometer use 8. Discharge planning - discharge home today with health services Time with Patient: Less than 30
[2022-10-08] MEDS ORDERED: CALCIUM CARBONATE 500 MG CHEWABLE PO SCH (09:00)
[2022-10-08] MEDS ORDERED: PANTOPRAZOLE 40 MG TABLET PO SCH (09:00)
[2022-10-08] MEDS ORDERED: RIVAROXABAN 10 MG TAB PO SCH (09:00)
[2022-10-08] MEDS ORDERED: ASCORBIC ACID 500 MG TAB PO SCH (09:00)
--- NOTE | 2022-10-08 18:28 | P.PN ---
Progress Note - Text Progress Note Date: 10/08/22 - Chief Complaint Left hip surgery - Hospital course Pleasant 72-year-old patient follows with Dr. Palafox. Patient is undergoing left total hip arthroplasty. Postprocedure sitting up in a recliner. Pain control. No nausea vomiting. No dizziness no lightheadedness. Estimated blood loss was 250 mL. Did tolerate some diet. Patient does take Lexapro for anxiety depression, has arthritis, some reflux and urinary incontinence. Does use CPAP machine for obstructive sleep apnea. October 08: Sitting up in a chair. Comfortable. Some pain. No nausea vomiting. Did tolerate a diet. Drop in hemoglobin. I did prescribe. Discussed with patient. Current medications reviewed Past medical history to include: Urinary incontinence. GERD. Obstructive sleep apnea uses CPAP, osteoarthritis, depression and anxiety Social history: Does not smoke or drink alcohol. Physical examination: VITAL SIGNS: 98, 76, 16, 1 37 x 67, 95% room air GENERAL: BMI 38.6, sitting up in a recliner comfortable EYES: Pupils equal. Conjunctiva normal. HEENT: External appearance of nose and ears normal, oral cavity grossly normal. NECK: JVD not raised; masses not palpable. HEART: First and second heart sounds are normal; no edema. LUNGS: Respiratory rate normal; clear to auscultation. ABDOMEN: Soft, nontender, liver spleen not palpable, no masses palpable. PSYCH: Alert and oriented x3; mood and affect normal. MUSCULOSKELETAL:No Clubbing/cyanosis;muscles-grossly intact. Chordee. Dressing over the left hip incision site. INVESTIGATIONS, reviewed in the clinical context: White count 11.8 hemoglobin 11 platelets 188 Assessment and plan: -Left total hip arthroplasty IV cefazolin for infection prophylaxis. Xarelto for DVT prophylaxis. -Primary osteoarthritis Tylenol as needed -Chronic urinary stress incontinence -Acute postprocedure blood loss anemia, expected from surgery. EBL was 2 50 mL. Ferrous sulfate 325 mg by mouth twice a day -GERD Prilosec -Anxiety depression otherwise specified Lexapro Discussed. Stable for discharge. Follow with PCP next week. Thank you Dr. Griffith
== END 2022-10-08 12:56 | disposition home health service (06) ==
LOC: OR 05:58 → 4SSUR 13:37 → OR 10-08 12:56
PROVIDERS: ATTEND Orthopaedic Surgery
DX: M16.12 Unilateral primary osteoarthritis, left hip (principal); G47.33 Obstructive sleep apnea (adult) (pediatric); F41.9 Anxiety disorder, unspecified; Z87.440 Personal history of urinary (tract) infections; Z79.899 Other long term (current) drug therapy
CPT/HCPCS: 97161; 64447; 86900; 86901; 85025; 86850; 87070; 73501; 27130; C1776; J2250; J1200; J1100; J0690 ×3; J2405; J3010; J1170 ×2; J2795; J2704; J2371

== ENCOUNTER → 2023-08-18 | Outpatient (CLI) | payer MEDICARE ==
--- NOTE | 2023-08-22 07:27 | MM ---
Reason for Exam: Screening (asymptomatic). Last mammogram was performed 1 year(s) and 2 month(s) ago. Patient History: Menarche at age 12. First Full-Term at age 27. Postmenopausal. Patient used Hormonal Contraceptives for 2 years. Maternal aunt had breast cancer, age 65. Risk Values: Pam 5 year model risk: 2.1%. NCI Lifetime model risk: 5.9%. Prior Study Comparison: 03/20/2020 Bilateral Screening Mammogram, [facility]. 06/03/2021 Bilateral Screening Mammogram, [facility]. 06/15/2022 Bilateral MG 3D screening mammo w/cad, [facility]. Tissue Density: There are scattered areas of fibroglandular density. Findings: Analyzed By CAD. Unchanged asymmetric densities anterior left breast. There is no suspicious group of microcalcifications or new suspicious mass in either breast. Overall Assessment: Benign, BI-RAD 2 Management: Screening Mammogram of both breasts in 1 year. . Patient should continue monthly self-breast exams. A clinical breast exam by your physician is recommended on an annual basis. This exam should not preclude additional follow-up of suspicious palpable abnormalities. Note on Pam scores and lifetime risk: 1. A Pam score greater than 3% is considered moderate risk. If this is the case, consider specialist referral to assess eligibility for a risk reducing agent. 2. If overall lifetime risk for the development of breast cancer is 20% or higher, the patient may qualify for future screening with alternating mammogram and breast MRI. Electronically signed and approved by: Billie Easley M.D. Radiologist
== END | disposition home or self-care (01) ==
LOC: RADMAMWWP 10:24
PROVIDERS: ATTEND Family Medicine
DX: Z12.31 Encounter for screening mammogram for malignant neoplasm of breast (principal); Z78.0 Asymptomatic menopausal state; Z80.3 Family history of malignant neoplasm of breast
CPT/HCPCS: 77063; 77067

== ENCOUNTER → 2024-07-04 | Outpatient (CLI) | payer MEDICARE ==
[2024-07-04 15:10] VITALS: BP 130/75; PULSE 78; RESP 16; TEMP 97.5
--- NOTE | 2024-07-04 15:54 | P.SLEEP ---
History of Present Illness DATE: 07/04/2024 CONSULTATION/NEW PATIENT EVALUATION HISTORY OF PRESENT ILLNESS/SLEEP-WAKE EVALUATION: 74-year-old lady had been ev aluated in the sleep center for obstructive sleep apnea hypopnea syndrome. Last time I saw the patient in our office about 6 years ago. Patient continued to use your CPAP equipment every night, cannot sleep without CPAP. Presently she developed some snoring and awakenings from sleep with episodes of screaming and movements during the sleep. I checked CPAP unit. CPAP pressure is 12 cm of water. Usage is 100% of the time, average 8.4 hours per night. Leak is 11 L/min, which is normal. Apnea hypopnea index is 3.6 normal range. SLEEP SCHEDULE: Usually sleep schedule from 11 PM to 8:30 AM. DURING SLEEP: Patient is using her CPAP equipment every night. Gently started to have snoring while using CPAP, has 2 awakenings from sleep with nocturia. Patient developed episodes of out of dream movements, sleep talking, sweating, possible night terrors. No history of hypnogogical hallucinations, sleep paralysis, or cataplexy. DURING THE DAY/WAKE STATE: Patient may feel sleepiness during the day. Chandler sleepiness scale is increased to 13. Patient may take 1 nap during the day around 3 PM. PAST MEDICAL HISTORY: Depression, acid reflux, headaches. PAST SURGICAL HISTORY: Bilateral hip replacement. MEDICATIONS: Please see below. SOCIAL HISTORY: Please see below. FAMILY HISTORY: Please see below. REVIEW OF SYSTEMS: Snoring on CPAP, awakenings from sleep, out of the movements. No fevers. No double vision. No recent chest pain. No shortness of breath. No abdominal pain. No bleeding episodes. No blood in urine. No seizure episodes. PHYSICAL EXAMINATION: GENERAL: A pleasant patient without any distress. VITAL SIGNS: Please see below, weight 244 pounds, BMI 42.5. HEENT: PERRLA, EOMI. Evaluation of oropharynx showed tongue protrudes midline, low position of soft palate Mallampati 4. NECK: Supple. No JVD. Thyroid is not palpable. 16 inches in circumference. LUNGS: Clear to percussion and to auscultation. Good air exchange. No wheezing or rhonchi. HEART: S1, S2 regular. No murmurs, gallops or rubs. ABDOMEN: Soft and nontender. Bowel sounds are present. No organomegaly appreciated. EXTREMITIES: No clubbing or cyanosis. REVIEWER SALES: Awake, alert, and oriented x3. Cranial nerves 2 to 7 intact. There is no fasciculation or atrophy noted. No focal deficits observed. ASSESSMENT: 1. Obstructive sleep apnea hypopnea syndrome for many years. Patient continued to use your CPAP equipment every night. Snoring while using CPAP. Extremely low position of soft palate Mallampati 4. Significant sleepiness with Chandler Sleepiness Scale 13.. 2. Out of dream movements. Possible REM sleep behavior disorder. Could be secondary to episodes of abnormal respiration during sleep. 3. Headaches. 4. Depression. 5 acid reflux. 6 . Obesity, BMI 42.5. PLAN: 1. I change parameters of CPAP unit to AutoPap with a range of pressure 8 to 15 cm of water. 2. Precautions related to possible REM sleep behavior disorder. 3. Preferable position during sleep on the side. 4. No driving if patient feels any sleepiness. Patient is aware of civil and criminal liability for unsafe driving. 5. Sleep hygiene with regular sleep time for at least 7.5-8 hours. 6. Watching and losing weight. 7. Follow-up visit in 2 months. If no improvements with out of dream movements we will consider to repeat sleep study and possibly to start pharmacotherapy. Thank you very much for referring this patient for consultation. Sincerely, Ryan Doherty MD, PhD, FAASM. Diplomat of [place] [employer], Sleep Medicine Board by [place] [employer] [place] [employer] [facility] [place] cc: Jasper Palafox DO Past Medical History Past Medical History: Osteoarthritis (OA), Sleep Apnea/CPAP/BIPAP Additional Past Medical History / Comment(s): Recent uTI treated with antibiotics. CPAP use. Constipation, aggravated by narcotics. History of Any Multi-Drug Resistant Organisms: None Reported Past Surgical History: Joint Replacement Additional Past Surgical History / Comment(s): Colonoscopy, right hip replacement., [facility] 10/07/22 Past Anesthesia/Blood Transfusion Reactions: No Reported Reaction Past Psychological History: Anxiety Smoking Status: Never smoker Past Alcohol Use History: None Reported Past Drug Use History: None Reported - Past Family History Father Family Medical History: Cancer Mother Family Medical History: Cancer Medications and Allergies Home Medications Medication Instructions Recorded Confirmed Type Ascorbic Acid [Vitamin C] 1,000 mg PO DAILY 08/27/20 07/04/24 History Escitalopram [Lexapro] 10 mg PO HS 08/27/20 07/04/24 History Glucos Sul 2Kcl/MSM/Chond/C/Mn 2 each PO HS 08/27/20 09/29/22 History [Glucosamine Chondroitin Cap] Multivitamins, Thera [Multivitamin 1 tab PO HS 08/27/20 07/04/24 History (formulary)] Acetaminophen [Tylenol Arthritis] 650 mg PO DIRECTED PRN 09/29/22 09/29/22 History Calcium Carbonate [Calcium] 1,000 mg PO DAILY 09/29/22 07/04/24 History Omeprazole Magnesium [PriLOSEC OTC] 20 mg PO DAILY 09/29/22 07/04/24 History Vitamin B-12 (Unknown Dose) 1 tab PO DAILY 09/29/22 07/04/24 History Apixaban [Eliquis] 2.5 mg PO BID #60 tab 10/08/22 Rx Ferrous Sulfate [Iron (65 MG 325 mg PO BID #60 tab 10/08/22 Rx Elemental)] HYDROcodone/APAP 7.5-325MG [[place] 1 - 2 each PO Q6HR PRN #36 tab 10/08/22 Rx 7.5] Sennosides/Docusate Sodium [Senna 1 each PO DAILY #20 capsule 10/08/22 Rx Plus 8.6-50 mg Softgel] Cetirizine HCl [Zyrtec] 5 mg PO DAILY 07/04/24 07/04/24 History Allergies Allergy/AdvReac Type Severity Reaction Status Date / Time No Known Allergies Allergy Verified 09/29/22 10:04 Physical Exam Vitals: Vital Signs Temp Pulse Resp BP Pulse Ox 07/04/24 15:07 97.5 F L 78 16 130/75 94 L Intake and Output 07/04/24 07/04/24 07/04/24 06:59 14:59 22:59 Other: Weight 110.677 kg Sleep Note - Sleep Data ESS Total: 13 - Sleep Note Sleep Note: Temperature: 97.5 F Pulse Rate: 78 Respiratory Rate: 16 Blood Pressure: 130/75 SpO2: 94 Height: 5 ft 3.5 in Weight: 110.677 kg BMI: Neck Circumference: 16
== END ==
LOC: 3 N SLEEP 14:09
PROVIDERS: ATTEND Internal Medicine
DX: G47.33 Obstructive sleep apnea (adult) (pediatric) (principal); R51.9 Headache, unspecified; F32.A Depression, unspecified; K21.9 Gastro-esophageal reflux disease without esophagitis; E66.9 Obesity, unspecified; Z99.89 Dependence on other enabling machines and devices; Z68.41 Body mass index [BMI] 40.0-44.9, adult
CPT/HCPCS: 99211

== ENCOUNTER → 2024-09-18 | Outpatient (CLI) | payer MEDICARE ==
[2024-09-18 14:56] VITALS: BP 139/64; PULSE 63; RESP 16; TEMP 98.3
--- NOTE | 2024-09-18 15:18 | P.PROGSL ---
Subjective DATE: 09/18/2024 FOLLOW UP VISIT. Patient with obstructive sleep apnea hypopnea syndrome return to sleep center for follow-up visit. Information from previous visit have been reviewed. Patient is using PAP equipment every night for the whole night, getting PAP supplies in time. CPAP unit is noisy. Paige sleepiness scale is increased to 11. I checked information from PAP unit. PAP unit pressure 5-15, average 14.3 cm H2O. Usage is 100% for more then 4 hours, average 8.3 hours per night. Leak is 4.3 l/m, which is in normal range. Apnea Hypopnea Index is 3.0, which is normal. MEDICATIONS have been reviewed, please see below. During physical exam: GENERAL: A pleasant patient without any distress. VITAL SIGNS: Please see below, weight is at 44 lbs. HEENT: PERRLA, EOMI.low position of soft palate, Mallapati 4 . NECK: Supple. No JVD. LUNGS: Clear to percussion and to auscultation. Good air exchange. No wheezing or rhonchi. HEART: S1, S2 regular. ABDOMEN: Soft and nontender. Obese EXTREMITIES: No clubbing or cyanosis. TISSUE RECOVERY TECHNICIAN: Awake, alert, and oriented x3. No focal deficit. Impressions: 1. Obstructive sleep apnea-hypopnea syndrome. Patient demonstrated great compliance with treatment, benefiting from treatment. CPAP unit is old and noisy. 2. Obesity, BMI 42.2. 3. Headaches. 4. Depression. 5. Recent vision changes. 6. Acid reflux. Plan: 1. Continue using PAP equipment every night for the whole night. 2. Sleep hygiene with regular time in bed for at least 7.5-8 hours 3. PAP unit should stay lower then position of the head. 4. Advised patient to remove all remaining water from humidifier canister daily and make it dry after each usage. Refill canister with fresh distilled water before each usage. 5. Watching weight. 6. Precautions related to driving. No driving if feel any sleepiness. 7. I will maintain prescription for PAP supplies including mask, tube, filters. Prescription to replace CPAP unit, because she unit presently is old and noisy. 8. Follow up visit in 1 to 3 months after patient will get new CPAP unit to evaluate clinical response on treatment, compliance with treatment and [place] adjustments related to mask fitting pressure and humidification. Thank you very much for allowing me to participate in the management of your patient. Ryan Doherty MD, PhD, FAASM. Diplomat of [employer] [employer], Sleep Medicine Board by [employer] Machine Operator Assistant of [facility] Objective - Vital Signs Vital Signs: Vital Signs Temp 98.3 F 09/18/24 14:55 Pulse 63 09/18/24 14:55 Resp 16 09/18/24 14:55 BP 139/64 09/18/24 14:55 Pulse Ox 95 09/18/24 14:55 FiO2 Intake & Output 09/17/24 09/18/24 09/18/24 18:59 06:59 18:59 Weight 110.677 kg Home Medications: Home Medications Medication Instructions Recorded Confirmed Type Ascorbic Acid [Vitamin C] 1,000 mg PO DAILY 08/27/20 07/04/24 History Escitalopram [Lexapro] 10 mg PO HS 08/27/20 09/18/24 History Glucos Sul 2Kcl/MSM/Chond/C/Mn 2 each PO HS 08/27/20 09/29/22 History [Glucosamine Chondroitin Cap] Multivitamins, Thera [Multivitamin 1 tab PO HS 08/27/20 07/04/24 History (formulary)] Acetaminophen [Tylenol Arthritis] 650 mg PO DIRECTED PRN 09/29/22 09/29/22 History Calcium Carbonate [Calcium] 1,000 mg PO DAILY 09/29/22 07/04/24 History Omeprazole Magnesium [PriLOSEC OTC] 20 mg PO DAILY 09/29/22 07/04/24 History Vitamin B-12 (Unknown Dose) 1 tab PO DAILY 09/29/22 07/04/24 History Apixaban [Eliquis] 2.5 mg PO BID #60 tab 10/08/22 Rx Ferrous Sulfate [Iron (65 MG 325 mg PO BID #60 tab 10/08/22 Rx Elemental)] HYDROcodone/APAP 7.5-325MG [[place] 1 - 2 each PO Q6HR PRN #36 tab 10/08/22 Rx 7.5] Sennosides/Docusate Sodium [Senna 1 each PO DAILY #20 capsule 10/08/22 Rx Plus 8.6-50 mg Softgel] Cetirizine HCl [Zyrtec] 5 mg PO DAILY 07/04/24 07/04/24 History
== END ==
LOC: 3 N SLEEP 14:34
PROVIDERS: ATTEND Internal Medicine
DX: G47.33 Obstructive sleep apnea (adult) (pediatric) (principal); E66.9 Obesity, unspecified; F32.A Depression, unspecified; K21.9 Gastro-esophageal reflux disease without esophagitis; H53.10 Unspecified subjective visual disturbances; R51.9 Headache, unspecified; Z68.41 Body mass index [BMI] 40.0-44.9, adult; Z99.89 Dependence on other enabling machines and devices
CPT/HCPCS: 99212

== ENCOUNTER → 2024-09-27 | Outpatient (CLI) | payer MEDICARE ==
--- NOTE | 2024-09-27 16:17 | MR ---
EXAMINATION TYPE: MR brain wo/w con DATE OF EXAM: 09/27/2024 2:20 PM COMPARISON: None. CLINICAL INDICATION: Female, 74 years old with history of H97.113 disc edema, Vision loss left eye. TECHNIQUE: Multiplanar, multisequence images of the brain and brainstem were acquired before and aft er administration of 11 mL IV Gadobutrol. Diffusion weighted imaging is performed. FINDINGS: No evidence for acute infarction, hemorrhage, mass effect, midline shift, herniation, effacement of b kim cisterns, or extra-axial fluid collection. Left parasagittal posterior extra-axial lesion measuring 1.1 cm shows low T2 weighted signal and hete rogeneous postcontrast enhancement located at the superior parieto-occipital. A calcified meningioma is favored. Mild volume loss along the bilateral cerebral convexities. No hydrocephalus. T2/FLAIR weighted sequences show [id number] scattered bright signal foci within both cerebral h emispheres. Major intracranial flow voids are intact. There is a 7 mm area of nodular enhancement along the A3 se gment anterior cerebral artery above the level of the anterior body of the corpus callosum, refer to sagittal postcontrast series 701 image 83. Axial postcontrast series 702 image 21. This seems to have direct communication with the inferior sagittal sinus which appears large and well-defined. Midline structures otherwise demonstrate normal morphology. The craniocervical junction is normal. Post contrast images demonstrate no evidence of pathologic enhancement. Dural venous sinuses are pat ent. Mild mucosal thickening ethmoid air cells an left maxillary sinus. Leftward nasal septal deviation. S mall air-fluid level left maxillary sinus. Globes appear intact. IMPRESSION: 1. No acute intracranial abnormality seen. [id number] scattered burden of T2 bright white matte r change typically relating to chronic small vessel ischemic disease. Chronic migraines or demyelinat ing disease are in the differential as well. 2. Incidental 1.1 cm left parasagittal posterior extra-axial mass, suspected calcified meningioma. Re commend 6 month follow-up MRI to reassess. 3. 7 mm nodular enhancement superior to the anterior body of the corpus callosum. Both the GILLIAN and in ferior sagittal sinus coursing through this region. Possible small nidus of an AVM. Otherwise, no abn ormal intracranial enhancement is seen. 4. Possible acute on chronic left maxillary sinus disease. Prominent leftward nasal septal deviation. [facility], , 09/27/2024 4:14 PM
== END | disposition home or self-care (01) ==
LOC: RADMRIMAIN 13:21
PROVIDERS: ATTEND Ophthalmology
DX: H47.13 Papilledema associated with retinal disorder (principal); I67.82 Cerebral ischemia; J34.2 Deviated nasal septum
CPT/HCPCS: 70553; A9585